=== PATIENT | male | born 1980 | race Two or more races ===

== ENCOUNTER 2021-07-02 11:57 | Emergency (ER) | payer MEDICAID, OTHER ==
[~2021-07-02] VITALS: Ht 182.9 cm; Wt 90.7 kg
[2021-07-02] MEDS ORDERED: cefTRIAXone SOD 1,000 MG VL IM ONE (13:30)
[2021-07-02] MEDS ORDERED: ACET-1158 PO (13:31)
[2021-07-02] MEDS ORDERED: CLIN300C8 PO (13:31)
[2021-07-02] MEDS ORDERED: cloNIDine 0.2 mg/24hr 7DAY PATCH TD ONE (14:00)
[2021-07-02] MEDS ORDERED: cloNIDine HCL 0.1 MG TAB ONE (14:09)
[2021-07-02] MEDS ORDERED: cloNIDine HCL 0.1 MG TAB PO ONE (14:15)
[2021-07-02 14:20] VITALS: BP 166/109
== END 2021-07-02 14:53 | disposition home or self-care (01) ==
LOC: ER 11:57
DX: M70.32 Other bursitis of elbow, left elbow (principal); Z90.49 Acquired absence of other specified parts of digestive tract; Z79.2 Long term (current) use of antibiotics; Z79.899 Other long term (current) drug therapy; Y93.89 Activity, other specified
CPT/HCPCS: 73080; 96372; 99283; J0696